=== PATIENT | female | born 1970 | race Caucasian/White ===

== ENCOUNTER 2019-03-21 13:10 | Emergency (ER) | payer MEDICARE ==
[2019-03-21 13:19] VITALS: BP 142/82
--- NOTE | 2019-03-21 13:34 | UC ---
Cardiac HPI - HPI Summary HPI Summary: chest pain x 1 day pain is located mid chest, 7 out 10 , no radiation worse with deep beating, better with rest, recent hx of Bronchitis, no prednisone no v/v/d/c, no SOB no fever, no chills - History of Current Complaint Chief Complaint: UCChestPain Stated Complaint: CHEST PAIN Time Seen by Provider: 03/21/19 13:16 Hx Obtained From: Patient Hx Last Menstrual Period: 02/20/19 Onset/Duration: Gradual Onset, Lasting Days - 2, Still Present Timing: Constant Initial Severity: Moderate Current Severity: Moderate Pain Intensity: 7 Chest Pain Location: Mid Sternal Character: Tightness Aggravating Factor(s): Deep Breaths Alleviating Factor(s): Rest Associated Signs & Symptoms: Positive: Chest Pain, Cough. Negative: Recent Stress, SOB, Fever, Palpitations - Allergy/Home Medications Allergies/Adverse Reactions: Allergies Allergy/AdvReac Type Severity Reaction Status Date / Time No Known Allergies Allergy Verified 03/21/19 13:15 Home Medications: Home Medications Citalopram TAB* [CeleXA TAB*] 10 mg PO DAILY 03/21/19 [History Confirmed ] Cyclobenzaprine TAB* [Flexeril 10 MG TAB*] 10 mg PO TID PRN 03/21/19 [History Confirmed 03/21/19] Gabapentin CAP(*) [Neurontin 100 mg CAP(*)] 200 mg PO TID 03/21/19 [History Confirmed 03/21/19] Naproxen [Naproxen 500 mg tab] 500 mg PO BID PRN 03/21/19 [History Confirmed 10/01] Omeprazole 30 mg PO DAILY 03/21/19 [History Confirmed 03/21/19] lamoTRIgine [Lamotrigine] 25 mg PO BID 03/21/19 [History Confirmed 03/21/19] predniSONE [Prednisone 20 MG TAB] 20 mg PO BID 03/21/19 [History Confirmed 03/21] traZODone TAB* [Desyrel TAB*] 300 mg PO BEDTIME 03/21/19 [History Confirmed 10/01] PMH/Surg Hx/FS Hx/Imm Hx Respiratory History: Asthma - Surgical History Surgical History: Yes Surgery Procedure, Year, and Place: spinal surgery - Family History Known Family History: Negative: Diabetes - Social History Alcohol Use: None Substance Use Type: None Smoking Status (MU): Heavy Every Day Tobacco Smoker Type: Cigarettes Amount Used/How Often: 1 PPD Review of Systems All Other Systems Reviewed And Are Negative: Yes Constitutional: Positive: Negative Skin: Positive: Negative Eyes: Positive: Negative ENT: Positive: Negative Respiratory: Positive: Cough Cardiovascular: Positive: Chest Pain Gastrointestinal: Positive: Negative Genitourinary: Positive: Negative Is Patient Immunocompromised?: No Physical Exam Triage Information Reviewed: Yes Appearance: Well-Appearing, No Pain Distress, Well-Nourished Vital Signs: Initial Vital Signs Temp 97.4 F 03/21/19 13:16 Pulse 82 03/21/19 13:16 Resp 22 03/21/19 13:16 BP 142/82 03/21/19 13:16 Pulse Ox 97 03/21/19 13:16 Vital Signs Reviewed: Yes Eye Exam: Normal Eyes: Positive: Conjunctiva Clear ENT: Positive: Normal ENT inspection, Hearing grossly normal, Pharynx normal, TMs normal. Negative: Nasal congestion, Nasal drainage Neck: Positive: Supple, Nontender, No Lymphadenopathy Respiratory Exam: Normal Respiratory: Positive: Chest non-tender, Lungs clear, Normal breath sounds Cardiovascular: Positive: RRR, No Murmur, Pulses Normal Diagnostics - EKG Cardiac Rate: NL Cardiac Rhythm: Sinus: Normal Ectopy: None ST Segment: Normal - Clinical Impression Provider Diagnosis: Pleurisy Discharge ED - Sign-Out/Discharge Documenting (check all that apply): Patient Departure All imaging exams completed and their final reports reviewed: No Studies - Discharge Plan Condition: Stable Disposition: HOME Prescriptions: Benzonatate CAP* [Tessalon 100 MG CAP*] 100 mg PO TID PRN #15 cap PRN Reason: Cough Patient Education Materials: Pleurisy (ED) Referrals: Betty Curiel NP [Primary Care Provider] - 7 Days Additional Instructions: may stop prednisone - Billing Disposition and Condition Condition: STABLE Disposition: Home
== END 2019-03-21 13:36 | disposition home or self-care (01) ==
LOC: UCCORT 13:10
DX: R09.1 Pleurisy (principal); J45.909 Unspecified asthma, uncomplicated; R05 Cough; F17.210 Nicotine dependence, cigarettes, uncomplicated; Z79.52 Long term (current) use of systemic steroids
CPT/HCPCS: 93005; 99212; G0463